=== PATIENT | female | born 1950 | race Caucasian/White ===

== ENCOUNTER → 2017-10-16 09:40 | Outpatient (CLI) | payer MEDICARE, SELFPAY ==
--- NOTE | 2017-10-16 09:42 | ECHOD_ITS ---
Reason For Study: hypoxemia, SOB Procedure This was a 2D Doppler, Color Flow transthoracic echocardiogram. The study was technically difficult. Due to body habitus. Contrast injection was performed. Exam performed in department. Left Ventricle Normal size and thickness. The estimated ejection fraction is 75 %. Stage 1 diastolic dysfunction. No regional wall motion abnormalities noted. Right Ventricle Normal size and thickness. Normal systolic function. Atria The left atrium is moderately enlarged. Normal right atrium. Normal atrial septum. Mitral Valve The mitral valve is structurally normal. No prolapse or stenosis seen. Tricuspid Valve Normal tricuspid valve. Mild (1+) tricuspid valve insufficiency. Right ventricular systolic pressure estimated to be 43 mmHg. Mild pulmonary hypertension. Aortic Valve Trisinus/trileaflet aortic valve. Normal aortic valve. Pulmonic Valve Normal pulmonic valve. Great Vessels Normal aortic root. Mild atherosclerosis of the aortic arch. Normal inferior vena cava. Inferior vena cava collapse with sniff. Pericardium/Pleural No pericardial effusion. Medication 22 gauge I.V. with prn adaptor inserted into left arm. Definity0.3ml given slow IV push to enhance endocardial definition. MMode/2D Measurements & Calculations LVIDd: 4.7 cm IVSd: 0.83 cm LVOT diam: 2.0 cm LVIDs: 2.6 cm LVPWd: 0.88 cm LVOT area: 3.3 cm2 FS: 44.3 % Ao root diam: 2.5 cm LAV(MOD-bp): 84.7 ml LA A4 area: 25.1 cm2 LA dimension: 4.1 cm LAV(MOD-bp) Indexed: 40.7 ml/m2 LAV(MOD-sp2): 92.5 ml LAV(MOD-sp4): 78.4 ml RA A4 area: 18.2 cm2 Time Measurements MV dec time: 0.24 sec Doppler Measurements & Calculations MV E max paul: 149.5 cm/sec Lat Peak E' Paul: 7.7 cm/sec Med Peak E' Paul: 5.8 cm/sec MV A max paul: 165.8 cm/sec E/E' lat: 19.3 E/E' med: 25.7 MV E/A: 0.90 Ao V2 max: 213.0 cm/sec LV V1 max: 146.6 cm/sec SV(LVOT): 96.7 ml Ao max P.2 mmHg LV V1 max P.6 mmHg Ao V2 mean: 143.9 cm/sec LV V1 mean P.4 mmHg Ao mean P.2 mmHg LV V1 mean: 100.2 cm/sec Ao V2 VTI: 44.4 cm LV V1 VTI: 29.3 cm ZEKE(I,D): 2.2 cm2 ZEKE(V,D): 2.3 cm2 PA V2 max: 115.3 cm/sec TR max paul: 307.9 cm/sec TR max P.9 mmHg Interpretation Summary The estimated ejection fraction is 75 %. Stage 1 diastolic dysfunction. The left atrium is moderately enlarged. Mild (1+) tricuspid valve insufficiency. Right ventricular systolic pressure estimated to be 43 mmHg. Mild pulmonary hypertension. The study was technically difficult. Contrast injection was performed. There is no comparison study available. Ordering Physician: Gabriel Gupta Performed By: Consuelo Giang RDCS, RVT
== END | disposition home or self-care (01) ==
PROVIDERS: Family Provider Family Medicine; PCP Family Medicine; Visit Provider Family Medicine
DX: R06.2 Wheezing (principal); R09.02 Hypoxemia
CPT/HCPCS: 93306; Q9957; A4216

== ENCOUNTER 2017-12-17 09:30 | Outpatient (RCR) | payer MEDICARE, SELFPAY ==
--- NOTE | 2017-10-14 12:17 | HP.PTEVAL ---
Patient's Visit Information FANTASMA ALBERTO is a 67 year old F referred to Physical Therapy by Marcelina Beyer DO with a diagnosis of Right Shoulder Scope, Bursectomy, Biceps Tenodesis. Date of Evaluation: 10/14/17 Physical Therapist: Muna Soto - Visit Plan Frequency: 2x /Week Duration: 4 Weeks Plan: Biceps Tenodesis 09/[address] Miller - Subjective Subjective: Patient reports that she was at [employer] [place]- riding around in a golfcart went over a bump and she felt and heard her arm rip. Then she could not lift her arm and was in severe pain in May. Had to leave and came back to [place]. Went to [facility] and they did an x-ray. Was told she had OA. Saw Dr. Gupta who sent her to PT with [facility]- came for 6 weeks of therapy. Did not help. Went and saw Dr. Beyer who sent her for an MRI and told her that she needs surgery. She waited a few weeks and it was hurting so bad that she decided to have surgery. Had surgery Sep 25- the RTC was not torn but the biceps was torn and cleaned out the shoulder. Had a bad reaction to the anesthetic- her vision is still blurred and she feels cloudy. Went home on O2 but has not really used it since. Patient reports that she feels okay now. Sleep: disturbed in the recliner- wearing the sling. Tries to take the sling off periodically and hand down. Pain is located in the deltoid. No pain in the shoulder or neck area. Worst: 5/10 Agg: doing to much. Eases: polar ice machine, Advil Best: 0/10. No N/T, ALEJANDRO, or LOB. Very active with grandchildren and cooking/baking . PMHx/Meds: no change since surgery - Objective Posture: FH, RS, Increased kyphosis. Observation: right arm in sling- incisions healing well. Palpation: tender along bicipital groove and deltoid. ROM: finger dexterity is WNL but slow, Pro/Sup: WNl, Elbow flex/extn (passive): WNL, Shoulder (passive): flexion: 110 degrees with muscular end feel, Abd: 90 degrees, IR: to belly, ER: neutral- pain with all shoulder motions - Goals Goal 1:: Patient will be I with HEP and progression Goal Time Frame: 4-6 Weeks Goal 2:: Patient will demo full AROM of the right shoulder Goal Time Frame: 4-6 Weeks Goal 3:: Patient will demo 4+/5 strength in UE where deficit to ease ADL's. Goal Time Frame: 4-6 Weeks Goal 4:: Patient will maintain proper posture t/o tx session to demo increased scap s/s. Goal Time Frame: 4-6 Weeks - Rehabilitation Potential Physical Therapy Diagnosis: Patient presents with hypomobility- she has decreased ROM, strength and muscular endurance leading to poor posture and decreased ability to perform ADL's. Rehabilitation Potential: Good - Anticipated Interventions Patient/Client Instruction: Educate patient on: Benefits of Fitness Program For the Purpose of:: To increase tolerance to activity/condition/position Therapeutic Exercise to Include: Strength training, Endurance training, Agility training, Body mechanics, Postural training, Passive ROM, Active ROM, Scapular Strength/Stabilization For the Purpose of:: To improve muscle performance and motor function TENS: Yes Cryotherapy (ice pack, ice massage): Yes Thermo therapy (hot pack): Yes Ultrasound (thermal/non thermal): No For the Purpose of:: To decrease pain Thank you for the opportunity to evaluate your patient. For Medicare and Medicare HMO plans, please review the plan of care and approve it. It will need to be FAXED BACK to us at [phone] for Medicare purposes. Please let me know if there are questions or concerns regarding this plan of care. Physician Signature: Date:
--- NOTE | 2017-11-12 09:59 | HP.PTREVAL_ITS ---
Marcelina Beyer, DO, It has been my pleasure to treat FANTASMA ALBERTO over the last 9 visits for Right Shoulder Scope, Bursectomy, Biceps Tenodesis. Please see the progress note below for an update on the physical therapy plan of care! Subjective: Patient reports that she saw MD who was happy with progress and told her she can drive again. She is getting better and getting back to more normal activities. Struggling with laundry basket and getting pill tops off. Is not doing her hair. Sleep: still in the recliner- gets up once or twice to go to the bathroom. Objective/Function: Posture: FH, RS, Increased kyphosis. Palpation: tender along bicipital groove. AROM: flexion: 125 degrees, abd: 90 degrees, IR: pocket , ER: 20 degrees. Strength: Isometric: 4/5 Plan Plan: Cont with POC 2x a week for 3 weeks. Goals Goal 1:: Patient will be I with HEP and progression Goal Time Frame: 4-6 Weeks Goal Progress: Progressing Goal 2:: Patient will demo full AROM of the right shoulder Goal Time Frame: 4-6 Weeks Goal Progress: Progressing Goal 3:: Patient will demo 4+/5 strength in UE where deficit to ease ADL's. Goal Time Frame: 4-6 Weeks Goal Progress: Progressing Goal 4:: Patient will maintain proper posture t/o tx session to demo increased scap s/s. Goal Time Frame: 4-6 Weeks Goal Progress: Progressing Anticipated Interventions Patient/Client Instruction: Educate patient on: Benefits of Fitness Program For the Purpose of:: To increase tolerance to activity/condition/position Therapeutic Exercise to Include: Strength training, Endurance training, Agility training, Body mechanics, Postural training, Passive ROM, Active ROM, Scapular Strength/Stabilization For the Purpose of:: To improve muscle performance and motor function TENS: Yes Cryotherapy (ice pack, ice massage): Yes Thermo therapy (hot pack): Yes Ultrasound (thermal/non thermal): No For the Purpose of:: To decrease pain Please do not hesitate to contact me at [phone] by phone or Fax: if you have questions or concerns regarding this new plan of care! Sincerely, Muna Soto
--- NOTE | 2017-12-17 09:58 | HP.PTREVAL_ITS ---
Marcelina Beyer, DO, It has been my pleasure to treat FANTASMA ALBERTO over the last 14 visits for Right Shoulder Scope, Bursectomy, Biceps Tenodesis. Please see the progress note below for an update on the physical therapy plan of care! Subjective: Patient reports that last night was the first time she slept in a bed due to being sick. Her shoulder is stiff sometimes. Goes tomorrow for her 3rd pulmonary test and possible another sleep apnea test. Has had the flu and respiratory issues for the last month. She has been doing her exercises at home - Objective/Function: Posture: FH, RS. Palpation: not tender. ROM: Flexion: 170 degrees, Abd: 150 degrees. Strength: Isometric: 4+/5 in neutral Plan Plan: Hold- will follow up when she is feeling better Goals Goal 1:: Patient will be I with HEP and progression Goal Time Frame: 4-6 Weeks Goal Progress: Progressing Goal 2:: Patient will demo full AROM of the right shoulder Goal Time Frame: 4-6 Weeks Goal Progress: Progressing Goal 3:: Patient will demo 4+/5 strength in UE where deficit to ease ADL's. Goal Time Frame: 4-6 Weeks Goal Progress: Progressing Goal 4:: Patient will maintain proper posture t/o tx session to demo increased scap s/s. Goal Time Frame: 4-6 Weeks Goal Progress: Progressing Anticipated Interventions Patient/Client Instruction: Educate patient on: Benefits of Fitness Program For the Purpose of:: To increase tolerance to activity/condition/position Therapeutic Exercise to Include: Strength training, Endurance training, Agility training, Body mechanics, Postural training, Passive ROM, Active ROM, Scapular Strength/Stabilization For the Purpose of:: To improve muscle performance and motor function TENS: Yes Cryotherapy (ice pack, ice massage): Yes Thermo therapy (hot pack): Yes Ultrasound (thermal/non thermal): No For the Purpose of:: To decrease pain Please do not hesitate to contact me at [phone] by phone or Fax: if you have questions or concerns regarding this new plan of care! Sincerely, Muna Soto
--- NOTE | 2018-03-10 14:46 | HP.PTDCNRP_ITS ---
HP - Discharge Summary (1) - Patient Information FANTASMA ALBERTO was seen in my office for initial evaluation on 10/14/17. The following Plan of Care was established for this patient: Initial Frequency: 2x /Week Initial Duration: 4 Weeks - Anticipated Interventions Patient/Client Instruction: Educate patient on: Benefits of Fitness Program For the Purpose of:: To increase tolerance to activity/condition/position Therapeutic Exercise to Include: Strength training, Endurance training, Agility training, Body mechanics, Postural training, Passive ROM, Active ROM, Scapular Strength/Stabilization For the Purpose of:: To improve muscle performance and motor function TENS: Yes Cryotherapy (ice pack, ice massage): Yes Thermo therapy (hot pack): Yes Ultrasound (thermal/non thermal): No For the Purpose of:: To decrease pain This patient was last seen in our office . Pertinent comments regarding their Physical therapy will appear below: Patient has not attended physical therapy in over 4 weeks- appropriate to be d/ c at this time. At this point I will be discontinuing this patient from physical therapy. I would be happy to see this patient again in the future if found appropriate by the physician. Thank you! Muna Soto
== END 2017-12-17 19:00 | disposition home or self-care (01) ==
LOC: PT 09:30
PROVIDERS: Family Provider Family Medicine; PCP Family Medicine; Visit Provider Orthopaedic Surgery
DX: Z98.890 Other specified postprocedural states (principal)
CPT/HCPCS: 97110; 97140; 97161; 97530; G8978; G8979

== ENCOUNTER → 2018-02-12 13:09 | Outpatient (CLI) | payer MEDICARE, SELFPAY ==
--- NOTE | 2018-02-12 13:11 | CT_ITS ---
STUDY: CT CHEST WITHOUT CONTRAST REASON FOR EXAM: Female, 68 years old. Interstitial lung disease. Pulmonary hypertension and hypoxia. RADIATION DOSAGE (If Supplied By Facility): CTDIvol = ( 23.13 ) mGy, DLP = ( 677.94 ) mGycm TECHNIQUE: Transaxial imaging was performed without the administration of intravenous contrast material. Multiplanar coronal and sagittal images were reformatted. Individualized dose optimization techniques were used for this CT. COMPARISON: Chest, December 09, 2017. CT of the chest, December 06, 2011. FINDINGS: The lungs are normal. There is minimal atelectatic changes at the left lung base due to the elevated hemidiaphragm and hiatal hernia. There is no demonstrated pleural abnormality. Normal heart and pericardium. There are calcifications of the coronary arteries. There are fatty centered subcentimeter mediastinal lymph nodes. Normal hilar regions. Normal unenhanced pulmonary arteries. There is atherosclerotic calcification of the aortic arch with tortuosity and elongation of the aortic arch and descending thoracic aorta. There are multi-level degenerative changes of the thoracic spine. There is a large retrocardiac type hiatal hernia with associated elevation left hemidiaphragm. Remainder of the visualized abdomen is grossly unremarkable. CT/Chest without Contrast IMPRESSION: 1. Large retrocardiac hiatal hernia. 2. Atherosclerotic changes of the thoracic aorta and coronary arteries. 3. No evidence of pulmonary disease. Minimal atelectasis is seen at the left lung base. 4. No major change from the prior study Electronically Signed: Wallace Ramos DO at 12:59 EDT Tel [phone], Service support ,
== END ==
PROVIDERS: Family Provider Family Medicine; PCP Family Medicine; Visit Provider Internal Medicine Pulmonary Disease
DX: J84.9 Interstitial pulmonary disease, unspecified (principal); I27.20 Pulmonary hypertension, unspecified; R09.02 Hypoxemia
CPT/HCPCS: 71250

== ENCOUNTER 2018-03-18 09:00 | Outpatient (RCR) | payer MEDICARE, SELFPAY ==
--- NOTE | 2018-03-05 10:25 | HP.PTEVAL_ITS ---
Patient's Visit Information FANTASMA ALBERTO is a 68 year old F referred to Physical Therapy by DO AMALIA Hamilton with a diagnosis of R shoulder pain. Date of Evaluation: 03/05/18 Physical Therapist: Michael Eller PT, - Visit Plan Frequency: 1x/Week Duration: 2 Weeks Plan: EDU and issue HEP for R shoulder rot cuff and scap stab ex's - Subjective Subjective: Pt goes by Ivania. Pt reports She had surgery for a torn bicep approximately 6 mos ago. Pt reports she has had multiple health issues since. Pt reports she did have PT for her shoulder after the surgery, but notes she couldnt afford to continue after that so she has put it off until today. Pt reports her pain is severe in the morning, and gets better as she uses it more. Pt reports she did very little strengthening with her rehab prior to stopping Rx. Pt is R hand dominant. Occasional numbness in R hand. Sleep diff secondary to pain. Pt reports most of her pain is on the posterior aspect of R shoulder. Pt reports she is still very limited with lifting a gallon of milk, or trying to poor laundry detergent into her washer. - Pain R shoulder Pain Intensity (Out of 10): 6 Pain Intensity Range: 9 - Objective Neuro: B UE sensation is WNL to light touch. B bicepital reflex= 1/3. Palpation : Pt is very sore throughout the distribution of her supraspinatus muscle, as well as the LHB tendon. No obvious deformity. ROM: L shoulder flex= 155, abd= 145, ER= 35, IR WNL; R shoulder flex= 95, abd= 85, ER= 35, IR moderately limited. MMT: L shoulder 5/5 throughout. R shoulder. special testing: pos empty can sign - Goals Goal 1:: I with HEP Goal Time Frame: 2 Weeks - Rehabilitation Potential Physical Therapy Diagnosis: R shoulder pain, weakness, and limited ROM secondary to R shoulder rot cuff syndrome Rehabilitation Potential: Good - Anticipated Interventions Patient/Client Instruction: Educate patient on: Condition, Plan of Care For the Purpose of:: To improve self management Therapeutic Exercise to Include: Strength training, Endurance training, Postural training, Passive ROM, Active ROM, Scapular Strength/Stabilization For the Purpose of:: To decrease pain, To increase ROM, To improve muscle performance and motor function Thank you for the opportunity to evaluate your patient. For Medicare and Medicare HMO plans, please review the plan of care and approve it. It will need to be FAXED BACK to us at [phone] for Medicare purposes. Please let me know if there are questions or concerns regarding this plan of care. Physician Signature: Date:
--- NOTE | 2018-04-23 09:10 | HP.PT.NRP ---
HP - Discharge Summary (1) - Patient Information FANTASMA ALBERTO was seen in my office for initial evaluation on 03/05/18. The following Plan of Care was established for this patient: Initial Frequency: 1x/Week Initial Duration: 2 Weeks - Anticipated Interventions Patient/Client Instruction: Educate patient on: Condition, Plan of Care For the Purpose of:: To improve self management Therapeutic Exercise to Include: Strength training, Endurance training, Postural training, Passive ROM, Active ROM, Scapular Strength/Stabilization For the Purpose of:: To decrease pain, To increase ROM, To improve muscle performance and motor function This patient was last seen in our office . Pertinent comments regarding their Physical therapy will appear below: Pt was last treated on 03/18/18 for her shoulder pain. Pt was instructed on a HEP which she proved to be I with. Pt has not returned through todays date, and is therefore discontinued at this time. At this point I will be discontinuing this patient from physical therapy. I would be happy to see this patient again in the future if found appropriate by the physician. Thank you! Michael Eller, PT,
== END 2018-03-18 19:00 | disposition home or self-care (01) ==
LOC: PT 09:00
PROVIDERS: Family Provider Family Medicine; PCP Family Medicine; Visit Provider Orthopaedic Surgery
DX: M25.511 Pain in right shoulder (principal)
CPT/HCPCS: 97161; 97530

== ENCOUNTER 2018-08-18 09:00 | Outpatient (RCR) | payer MEDICARE, SELFPAY ==
--- NOTE | 2018-07-17 15:10 | HP.OTEVAL_ITS ---
Patient's Visit Information FANTASMA ALBERTO is a 68 year old F, referred to Occupational Therapy by Gabriel Gupta, with a diagnosis of BLE lymphedema. Date of Evaluation: 07/17/18 Occupational Therapist: Yue Barreto, TOÑAR/Smiley, CHT - Subjective Subjective: Pt states she has not worn her compression hose all summer, and has noticed her legs are swelling more. Pt states her leg swelling does go down when she is sleeping. Pt states her legs swell within two hours of getting up and around. Pt states she has pain from her waist down and can not sleep at night. Pt states she will be seening Physical therapy 07/18/2018 to address her leg and back pain. Pt states she does have a newer pair of compression socks she can wear but does not want to wear them during the summer. pt states she is having difficulty with standing and walking due to her knee and back pain. - Pain BLE 8 - Lymphedema (Circumferential Measure) Mid-foot: right 22cm left 22cm Ankle: right 28cm left 27cm Lower calf: right 28cm left 28cm Largest calf: right 39cm left 37.5cm Below knee: right 34cm left 345cm - Lower Limb Functional Index Lower Extremity Functional Score: 13 - Goals Demonstrate adequate knowledge skin care/prec by 2nd week: Yes Demonstrate adequate knowledge therapeutic exercises by d/c: Yes Select approp compression garment w/donning/care/wear by d/c: Yes Voice need to replace compression garment every 4-6mo by dc: Yes Goal:: pt demo understanding of the need of compression garments for LE to mtg her LE swelling. - Rehabilitation General Assessment: This pt has been seen in the past at this clinic for LE lymphedema. Pt was re-ed. on lymphedema, treatments and home mtg. Pt was ed on need to use compression socks or alternatives. Pt states she is not going to wear compression socks during the summer. Advised pt this would be the best treatment option for her to start wearing her compression socks. pt adamently stated she was not going to wear them becase they are too hot. Pt advised to lay down 2-3 x a day and elevate her legs if she is refusing to wear compression socks at this time. Pt given options of velcro closer compression alternatives but did not like that they are going to be thick and hot too. Ed. pt on compression pump pt did seem open to this if her insurance would pay for it. Rehabilitation Potential: Questionable - Anticipated Interventions Anticipated Interventions: Education re Diagnosis, Education re Life-long lymphedema Management, Education re Skin Care and Precautions, Education re Correct Donning Tech,Care&Wearing Sched Comp Garments, Home Program - Visit Plan TEXT: Thank you for the opportunity to evaluate your patient. For Medicare and Medicare HMO plans, please review the plan of care and approve it. It will need to be FAXED BACK to us at [phone] for Medicare purposes. Please let me know if there are questions or concerns regarding this plan of care. Physician Signature: Date:
--- NOTE | 2018-07-18 12:57 | HP.PTEVAL ---
Patient's Visit Information FANTASMA ALBERTO is a 68 year old F referred to Physical Therapy by Gabriel Gupta with a diagnosis of Medial Knee Pain. Date of Evaluation: 07/18/18 Physical Therapist: Muna Soto - Visit Plan Frequency: 2x /Week Duration: 4 Weeks Plan: Focus on LE and core s/s- functional mobility - Subjective Subjective: Patient reports that she has so many issues with her shoulder, back and legs. Last Sep she had biceps surgery- its worse than before. Has dealing her back and legs since her 30's. She has tried 18-19 meds for pain and inflammation and creams- nothing is working. Last summer they bought a scooter and has been using that and she also uses the scooter in [employer] Lives with and son who can help as needed. Does have lyphedema and is seeing OT. Retired. Dr. Gupta sent her to PT/OT. Is unable to perform ADL's and recreational activities and has to do a little at a time and then has to stop. Went to Dr. Noel had injections and nothing helps. In the past she has tried the therapy pool but it doesn't carry over or last. Pain is located across the low back and radaites to the ankle. She reports its impossible to get comfortable. Describes it as running pains up/down the legs. Has had EMG- which are negative. She has been told she has Fibro- went to specialist who had her go for a lot of tests and told her she just needs to walk/move more. Worst: 8/10 Agg: standing Eases: sitting or laying down Best: 5/10. Sleep: disturbed- she feels like she needs to move a lot. hurts to have her legs straight out. No loss or change in bowel or bladder. Occasionally has NT in both LE but the left is worse than the right- to the knee. Has a lot of stress and she feels like that might be contributing. PMHx: fibro, DM, sleep apnea, biceps repair on the right, HTN, pedimal, lymphedema. Meds: humalog, depacote, metaprolol, verosibide, zetia, some other that she can't remember. - Objective Posture: Fh, RS, increased kyphosis- very rigid in standing and sitting- can not correct with verbal cues or tactile cues. Gait: moderate deviations- bilateral toes turned out with very short chantel and step length- wide MAYITO. SLS: WS but unable to SLS. HR/TR: able with UE A. Observation: wound on the anterior alcaraz on the right LE. Stairs: non recip with 2 HR and significant reliance on UE. Strength: Core: poor, Hip: 3+/5, Knee: 4/5, Ankle: 4/5. ROM: Lumber: extn: decreased by 50%, flexion: decreased t 75%, SB: decerased by 50% Rot: decerased by 50%, Hip: WFL, Knee: WFL, Ankle: WFL. Dural Signs: negative,. Sensation: intact to gross touch. Flex: HS: severe, Gastroc:severe - Goals Goal 1:: Patient will be I with HEP and progression Goal Time Frame: 4-6 Weeks Goal 2:: Patient will asc/desc 8 stairs recip with 2 HR safely Goal Time Frame: 4-6 Weeks Goal 3:: Patinet will ambulate >300 feet wtih a normalized gait pattern Goal Time Frame: 4-6 Weeks Goal 4:: Patient will demo 4+/5 strength in LE Goal Time Frame: 4-6 Weeks - Rehabilitation Potential Physical Therapy Diagnosis: Patient presents with hypomobility- she has decreased ROM, strength and muscular endurance leading to poor posture, balance and functional mobility. Rehabilitation Potential: Fair - Anticipated Interventions Patient/Client Instruction: Educate patient on: Benefits of Fitness Program Therapeutic Exercise to Include: Strength training, Endurance training, Balance training, Agility training, Body mechanics, Flexibilty training, Dynamic Lumbar Stabilization TENS: Yes Cryotherapy (ice pack, ice massage): Yes Thermo therapy (hot pack): Yes Ultrasound (thermal/non thermal): Yes Thank you for the opportunity to evaluate your patient. For Medicare and Medicare HMO plans, please review the plan of care and approve it. It will need to be FAXED BACK to us at [phone] for Medicare purposes. Please let me know if there are questions or concerns regarding this plan of care. Physician Signature: Date:
--- NOTE | 2018-08-18 11:23 | HP.PTDCSUM_ITS ---
HP - PT D/C Summary It has been my pleasure to treat FANTASMA ALBERTO under orders from Gabriel Gupta, for the diagnosis of Medial Knee Pain for a total of 9 visit(s). Discharge Date: Please see the following information for a summary of their discharge status. - Subjective Subjective: Patient reports that she does not see any change. After therapy she feels nauseated and has to lay down after therapy for a few hours. Saw Dr. Gupta last week and he was talking to her about going to a [facility]. Has had a lot of tests run and they can't find anything wrong with her. Frustrated with not getting better and not having any answers. - Pain Right knee Pain Intensity (Out of 10): 9 Left knee Pain Intensity (Out of 10): 8 right ankle Pain Intensity (Out of 10): 10 - Overall Improvement % Improvement: 0 - Objective Objective/Function: Gait: decreased chantel and step length, good arm swing on R , no arm swing on L. Stairs: negotiate stairs with 2 HR and step to pattern, decreased speed and SOB noted. Takes each step abruptly, not fluid motion. Palpation: tender to palpate medial knee joint line and border of patella bilat. AROM: decreased hip flex and knee ext. bilat. Toe raise 25%, heel raise 25%, SL balance bilat. 20 seconds with several sways requiring hand contact with table to stable self. Strength: hip flex. R 3+/5 and L 3/5, hip ext. bilat. 4/5, hip abd. 5/5, hip add. 4/5, knee ext. 4/5, knee flex. 5/5, ankle PF/ DF 5/5. - Goals Goal 1:: Patient will be I with HEP and progression Goal Progress: Progressing Goal 2:: Patient will asc/desc 8 stairs recip with 2 HR safely Goal Progress: Not Progressing Goal 3:: Patinet will ambulate >300 feet wtih a normalized gait pattern Goal Progress: Not Progressing Goal 4:: Patient will demo 4+/5 strength in LE Goal Progress: Not Progressing - Plan Plan: D/C patient- encouraged to follow up MD - D/C Information If there are questions or concerns regarding this patient's physical therapy, please feel free to call me at [phone]. Thank you for the referral of this patient. Sincerely, Muna Soto
== END 2018-08-18 12:37 | disposition home or self-care (01) ==
LOC: PT 09:00
PROVIDERS: Family Provider Family Medicine; PCP Family Medicine; Visit Provider Family Medicine
DX: M25.562 Pain in left knee (principal); M25.561 Pain in right knee; M70.51 Other bursitis of knee, right knee; M70.52 Other bursitis of knee, left knee; I89.0 Lymphedema, not elsewhere classified; M79.89 Other specified soft tissue disorders
CPT/HCPCS: 97110; 97162; 97164; 97166

== ENCOUNTER → 2019-04-13 | Outpatient (CLI) | payer MEDICARE, SELFPAY ==
--- NOTE | 2019-04-13 08:20 | BI_ITS ---
MAMMOGRAPHY - BILATERAL SCREENING REASON FOR EXAM: Female, 69 years old. Routine annual screening examination. PERTINENT HISTORY: Sister with breast cancer. Aunt with breast cancer. TECHNIQUE: Digital bilateral breast bonita (3D mammographic acquisition) in the CC and MLO projections. 2-D mediolateral oblique (MLO) and craniocaudad (CC) views of both breasts were obtained. CAD: Full Field Digital Mammography with Computer Added Detection was performed. COMPARISON: Comparison is made with prior study dated November 21, 2016 and November 22, 2015. FINDINGS: Breast Composition: The breasts are almost entirely fatty. There are no dominant masses or suspicious calcifications. Stable benign-appearing bilateral axillary lymph nodes. No other significant abnormalities are identified. There has been no significant change since the prior study. BI/SCREENING MAMM (CAD), BILAT IMPRESSION: Stable bilateral screening mammogram. Yearly follow-up mammogram recommended. (A) ASSESSMENT CATEGORY: BIRADS Category 2: Benign. A letter regarding these results will be sent to the patient by the facility within 30 days. Approximately 10% of breast cancers are not detected by mammography. A normal mammogram should not delay biopsy of a clinically suspicious abnormality. [id number] Electronically Signed: Alverto Collier, at 9:23 EDT , Service support ,
== END | disposition home or self-care (01) ==
LOC: OPBI 08:03
PROVIDERS: Family Provider Family Medicine; PCP Family Medicine; Referring Provider Family Medicine; Visit Provider Family Medicine
DX: Z12.31 Encounter for screening mammogram for malignant neoplasm of breast (principal)
CPT/HCPCS: 77063; 77067

== ENCOUNTER → 2019-07-28 | Outpatient (CLI) | payer MEDICARE, SELFPAY ==
--- NOTE | 2019-07-28 12:28 | ECHOCS_ITS ---
Reason For Study: PHTN Procedure This was a 2D Doppler, Color Flow transthoracic echocardiogram. The exam was of poor technical quality due to body habitus.. LM with Dr Aguilar's office regarding pt BP- taken in both arms pre/post test. L= 220/76 Rt= 218/66 after vccc=081/86. The study was technically difficult. Contrast injection was performed. Exam performed in department. Left Ventricle Normal LV size. Left ventricular systolic function is normal. The estimated ejection fraction is 70 %. There is evidence of diastolic dysfunction. No regional wall motion abnormalities noted. Right Ventricle Normal RV size. Normal systolic function. Atria The left atrium is moderately enlarged. Normal right atrium. No doppler evidence for ASD. Mitral Valve There is mild mitral annular calcification. Normal mitral valve. Trivial mitral valve insufficiency. Tricuspid Valve Normal tricuspid valve. Moderate (2+) eccentric tricuspid valve insufficiency. Right ventricular systolic pressure estimated to be 55 mmHg. Aortic Valve The aortic valve is not well visualized. Pulmonic Valve The pulmonic valve is not well visualized. Great Vessels Normal sized aortic root. Pericardium/Pleural No pericardial effusion. Medication 22 gauge I.V. with prn adaptor inserted into right arm. Diluted definity 3ml given slow IV push to enhance endocardial definition. MMode/2D Measurements & Calculations LVIDd: 4.8 cm IVSd: 0.74 cm Ao root diam: 2.7 cm LVIDs: 3.0 cm LVPWd: 0.81 cm RVDd: 3.9 cm FS: 36.4 % LAV(MOD-bp): 73.9 ml LA A4 area: 25.3 cm2 LA dimension(2D): 3.4 cm LAV(MOD-bp) Indexed: 35.3 ml/m2 LAV(MOD-sp2): 66.4 ml LAV(MOD-sp4): 75.3 ml RA A4 area: 16.9 cm2 Time Measurements MV dec time: 0.20 sec Doppler Measurements & Calculations MV E max paul: 162.4 cm/sec Lat Peak E' Paul: 6.1 cm/sec Med Peak E' Paul: 6.3 cm/sec MV A max paul: 130.1 cm/sec E/E' lat: 26.8 E/E' med: 25.9 MV E/A: 1.2 MV V2 max: 177.9 cm/sec Ao V2 max: 226.6 cm/sec LV V1 max: 146.5 cm/sec MV max P.7 mmHg Ao max P.6 mmHg LV V1 max P.6 mmHg MV V2 mean: 87.3 cm/sec Ao V2 mean: 159.5 cm/sec LV V1 mean P.0 mmHg MV mean P.7 mmHg Ao mean P.4 mmHg LV V1 mean: 106.5 cm/sec MV V2 VTI: 52.2 cm Ao V2 VTI: 49.9 cm LV V1 VTI: 34.4 cm PA V2 max: 98.0 cm/sec TR max paul: 360.4 cm/sec MV P1/2t-pr_phl: 96.8 msec TR max P.4 mmHg Interpretation Summary The study was technically difficult. Contrast injection was performed. Left ventricular systolic function is normal. The estimated ejection fraction is 70 %. The left atrium is moderately enlarged. There is mild mitral annular calcification. Trivial mitral valve insufficiency. Moderate (2+) eccentric tricuspid valve insufficiency. Right ventricular systolic pressure estimated to be 55 mmHg. There is evidence of diastolic dysfunction. Ordering Physician: Kendrick Aguilar Referring Physician: ZOFIA VARGAS Performed By: Sisi Flores, RDCS, RVT
== END | disposition home or self-care (01) ==
LOC: CVS 12:25
PROVIDERS: Family Provider Family Medicine; PCP Family Medicine; Referring Provider Internal Medicine Pulmonary Disease; Visit Provider Internal Medicine Pulmonary Disease
DX: I27.20 Pulmonary hypertension, unspecified (principal)
CPT/HCPCS: 93306; Q9957; A4216; C8929

== ENCOUNTER → 2019-08-15 08:35 | Outpatient (CLI) | payer MEDICARE, SELFPAY ==
--- NOTE | 2019-08-15 08:53 | MRI_ITS ---
STUDY: MRI LUMBAR SPINE WITHOUT CONTRAST REASON FOR EXAM: Female, 69 years old. Stenosis. Back pain radiates into bilateral legs. Difficulty walking. TECHNIQUE: Standardized fat and water weighted pulse sequences were obtained in the sagittal and axial planes. COMPARISON: None FINDINGS: T12-L1: Normal endplates. Normal disc height, hydration and morphology. Normal bilateral facet joints. Normal central canal and bilateral lateral recesses. Normal bilateral intervertebral neural foramina. Normal lumbar lordosis. There is no substantial scoliosis. Normal conus medullaris that terminates at the T12-L1 level. L1-2: Normal endplates. Normal disc height, hydration and morphology. Normal bilateral facet joints. Normal central canal and bilateral lateral recesses. Normal bilateral intervertebral neural foramina. L2-3: Normal endplates. Disc dehydration. Normal bilateral facet joints. Normal central canal and bilateral lateral recesses. Normal bilateral intervertebral neural foramina. L3-4: Normal endplates. Disc dehydration and mild disc space narrowing. Normal bilateral facet joints. Normal central canal and bilateral lateral recesses. Mild inferior foraminal encroachment due to spurring. No neural compromise. L4-5: Normal endplates. Marked disc space narrowing. Small central and left paramedian disc protrusion, noncompressive. Mild spondylotic bar extending into the left neural foramen. Mild facet hypertrophy. Normal central canal and bilateral lateral recesses. Mild left foraminal encroachment due to spurring. L5-S1: Normal endplates. Disc dehydration and small central disc protrusion. Mild facet hypertrophy. Normal bilateral facet joints. Normal central canal and bilateral lateral recesses. Normal bilateral intervertebral neural foramina. Normal visualized sacral ala. Normal visualized paraspinous soft tissue structures. MRI/Spine Lumbar (Routine) IMPRESSION: 1. Noncompressive disc protrusions at L4-5 and L5-S1. 2. Mild foraminal encroachment at L3-4 and L4-5. 3. Additional degenerative changes detailed above. Electronically Signed: Leslie Arguello MD at 18:01 EDT Tel , Service support ,
== END ==
PROVIDERS: Family Provider Family Medicine; PCP Family Medicine; Referring Provider Family Medicine; Visit Provider Family Medicine
DX: M48.062 Spinal stenosis, lumbar region with neurogenic claudication (principal)
CPT/HCPCS: 72148

== ENCOUNTER → 2019-08-31 16:56 | Outpatient (CLI) | payer MEDICARE, SELFPAY ==
--- NOTE | 2019-08-31 17:00 | RAD_ITS ---
STUDY: X-RAY - CERVICAL SPINE REASON FOR EXAM: Female, 69 years old. Neck pain TECHNIQUE: 4 view(s) of the cervical spine were obtained. COMPARISON: None FINDINGS: There are degenerative changes of the anterior atlantoaxial articulation. Normal odontoid process. Normal cervical lordosis. There is mild endplate spondylosis. Normal disc space heights. Normal visualized intervertebral neuroforamina. There are atherosclerotic vascular calcifications of the carotid arteries. RAD/Cerv Spine 2 or 3 Views IMPRESSION: Mild degenerative change of the cervical spine. No visualized acute loss of height or alignment. Partially visualized calcification of the left greater than right carotid arteries. Recommend consideration for follow-up carotid ultrasound when appropriate. Electronically Signed: Mariajose Merrill MD at 23:04 EDT Tel , Service support ,
== END ==
PROVIDERS: Family Provider Family Medicine; PCP Family Medicine; Referring Provider Anesthesiology Pain Medicine; Visit Provider Anesthesiology Pain Medicine
DX: M54.2 Cervicalgia (principal)
CPT/HCPCS: 72040

== ENCOUNTER → 2019-09-14 12:17 | Outpatient (CLI) | payer MEDICARE, SELFPAY ==
--- NOTE | 2019-09-14 13:54 | CDU_ITS ---
Reason For Study: Carotid Stenosis Rt. Velocities/BP Lt. Velocities/BP Prox CCA 78.6/9.5 cm/sec. Prox CCA 81.7/12.4 cm/sec. Mid CCA 74.7/9.5 cm/sec. Mid CCA 67.4/10.2 cm/sec. Dist CCA 65.6/10.8 cm/sec. Dist CCA 78.4/10.2 cm/sec. Prox ICA 64.3/10.8 cm/sec. Prox ICA 63/11.3 cm/sec. Mid ICA 61.7/10.8 cm/sec. Mid ICA 74/16.8 cm/sec. Dist ICA 71.4/12 cm/sec. Dist ICA 81.7/12.4 cm/sec. Rt. ICA/CCA = 1.0. Lt. ICA/CCA = 1.0. Prox ECA 113.8/12.1 cm/sec. Prox ECA 111.3/10.2 cm/sec. Rt. Vert. 43/8.1 cm/sec. Lt. Vert. 78.4/11.3 cm/sec. Right Extracranial There is intimal thickening but no significant atherosclerotic plaque noted in the right common carotid artery. There is heterogeneous, irregular atherosclerotic plaque noted in the right internal carotid artery. There is no significant atherosclerotic plaque noted in the right external carotid artery. Antegrade flow is noted in the right vertebral artery. Left Extracranial There is homogeneous, smooth atherosclerotic plaque noted in the left common carotid artery. There is heterogeneous, irregular atherosclerotic plaque noted in the left internal carotid artery. There is no significant atherosclerotic plaque noted in the left external carotid artery. The left external carotid artery is not well visualized. Antegrade flow is noted in the left vertebral artery. Procedure Carotid Duplex 50501. Exam performed in department. Interpretation Summary Mild (<50%) stenosis right extracranial internal carotid. Mild (<50%) stenosis left extracranial internal carotid. Flow within the vertebral arteries is antegrade bilaterally. Ordering Physician: Jaz Thomas Referring Physician: Jaz Thomas Performed By: Kandace Manzano RVT
== END ==
PROVIDERS: Family Provider Family Medicine; PCP Family Medicine; Referring Provider Family Medicine; Visit Provider Family Medicine
DX: I65.23 Occlusion and stenosis of bilateral carotid arteries (principal)
CPT/HCPCS: 93880

== ENCOUNTER 2019-09-16 09:04 | Emergency (ER) | payer MEDICARE, SELFPAY ==
[2019-09-16 09:04] VITALS: BP 166/78; PULSE 71; RESP 18; TEMP 36.6; O2SAT 96; BMI 36.6
--- NOTE | 2019-09-16 09:48 | RAD_ITS ---
STUDY: X-RAY - LEFT KNEE REASON FOR EXAM: Female, 69 years old. Pain following a fall. TECHNIQUE: AP and lateral view(s) of the knee. COMPARISON: None. FINDINGS: Normal visualized distal femur. Normal visualized proximal tibia and fibula. Normal proximal tibiofibular articulation. There is severe degenerative arthrosis of the medial femorotibial compartment with severe joint space narrowing. Normal lateral femorotibial compartment. There is moderate degenerative arthrosis of the patellofemoral articulation. Tiny joint effusion. RAD/Knee 1 or 2 Views IMPRESSION: Degenerative arthrosis. Tiny joint effusion. Electronically Signed: Alverto Collier, at 10:09 EDT , Service support ,
--- NOTE | 2019-09-16 09:50 | ED.RN ---
PATIENT TAKES HALF OF HOME ULTRAM, DR. WALL AWARE.
--- NOTE | 2019-09-16 10:22 | ED.DCSUM_ITS ---
- ER Visit Summary Date of Service: 09/16/19 Chief Complaint: Pain History of Present Illness: The patient is a 69 F with left knee pain. The pain started yesterday evening when she was sitting down on her bed. She felt something move her shift in her knee. She has pain with use and weightbearing. She never had this before. She does have a history of left knee meniscus injury which was treated with an arthroscopy remotely in [facility]. Denies any history of blood clots. Denies any weakness or numbness. Denies any skin changes. Physical Examination: Afebrile and vital signs unremarkable. Knee inspection is normal. She has diffuse tenderness to the left knee. Range of motion is intact. Neurovascular intact distally. No laxities or other abnormal findings. Test Results: X-ray shows degenerative changes and a tiny effusion. Emergency Department Course and Treatment: It sounds like the patient subluxed her knee. She has a history of meniscus injury. She has unremarkable x-rays. We will treat with conservative measures, rest, ice, elevate. She has Ultram at home and declined any further pain medication. She was given a walker and will continue using an Elias wrap. Follow-up with orthopedics. Treatment Plan: As above Disposition: Discharge Impression: 1. Left knee pain This note was generated with [employer] dictation software. It may contain incorrect words, spelling, and punctuation that were not noted in review of the chart prior to signing ED Disposition - Plan for ED Patient: Referrals: Jaz Thomas MD [Primary Care Provider] -
--- NOTE | 2019-09-16 10:24 | ED.DEP ---
ED Disposition - Plan for ED Patient: Instructions: KNEE PAIN, Uncertain Cause Referrals: Marcelina Beyer DO [STAFF PHYSICIAN] -
[2019-09-16 10:25] VITALS: BP 134/78; PULSE 87; RESP 18; O2SAT 99
== END 2019-09-16 10:37 | disposition home or self-care (01) ==
LOC: ED 10:22
PROVIDERS: Emergency Provider Emergency Medicine; Family Provider Family Medicine; PCP Family Medicine
DX: M25.562 Pain in left knee (principal)
CPT/HCPCS: 73560; 99282

== ENCOUNTER → 2020-05-10 11:10 | Outpatient (CLI) | payer MEDICARE, SELFPAY ==
--- NOTE | 2020-05-10 11:11 | BI_ITS ---
MAMMOGRAPHY - BILATERAL SCREENING REASON FOR EXAM: Female, 70 years old. Routine annual screening examination. PERTINENT HISTORY: Sister with breast cancer. Aunt with breast cancer. TECHNIQUE: Digital bilateral breast stephen (3D mammographic acquisition) in the CC and MLO projections. 2-D mediolateral oblique (MLO) and craniocaudad (CC) views of both breasts were obtained. CAD: Full Field Digital Mammography with Computer Added Detection was performed. COMPARISON: Comparison is made with prior study dated April 13, 2019 and November 21, 2016. FINDINGS: Breast Composition: The breasts are almost entirely fatty. There are no dominant masses or suspicious calcifications. Stable benign-appearing bilateral axillary lymph nodes. No other significant abnormalities are identified. There has been no significant change since the prior study. BI/SCREEN MAMM (CAD) W/STEPHEN BILAT IMPRESSION: Stable bilateral screening mammogram. Yearly follow-up mammogram recommended. (A) ASSESSMENT CATEGORY: BIRADS Category 2: Benign. A letter regarding these results will be sent to the patient by the facility within 30 days. Approximately 10% of breast cancers are not detected by mammography. A normal mammogram should not delay biopsy of a clinically suspicious abnormality. [id number] Electronically Signed: Alverto Collier, at 12:17 EDT , Service support ,
== END ==
PROVIDERS: PCP Family Medicine; Referring Provider Family Medicine; Visit Provider Family Medicine
DX: Z12.31 Encounter for screening mammogram for malignant neoplasm of breast (principal)
CPT/HCPCS: 77063; 77067

== ENCOUNTER 2020-11-01 13:00 | Outpatient (RCR) | payer MEDICARE, SELFPAY ==
--- NOTE | 2020-10-11 12:58 | HP.PTEVAL ---
Patient's Visit Information FANTASMA ALBERTO is a 70 year old F referred to Physical Therapy by Dr. Joe Noel MD with a diagnosis of BACK AND LEG PAIN. Date of Evaluation: 10/11/20 Physical Therapist: Peter Norris PT, Cert MDT, OCS - Visit Plan Frequency: 1-2x /Week Duration: 4 Weeks Plan: PT INTERVENTIONS DLS ABD/BACK ,POSTURAL EX'S,LE STRENGTHENING AND MODLTIES NEEDED - Subjective This 70 y/o female presents to physical therapy with lumbar pain with radicular symptoms. Patient has back pain and leg pain for many years. Patient has symmtrical lumbar pain to lateral hips and occasional anterior legs. Patient has seen Dr Rodrigues and has had several epidural injections. Patient has had last injection in [facility]. Patient injections last couple of weeks. Denies parathesia/tingling-.Bowel/bladder -> Coughing/sneezing-. Aggraveting factors standing,walking ,lidting,bending,and extended sitting. Patient has difficulty with steps and putting on shoes. Patient alleviating rest,advil. Patient condtion of back and leg pain affects ADL's and housewotk. Patient back pain affects QOL.Patient has fibromaygia. SOCIAL: . VOCATION: retired - Pain Bilateral Back Pain Intensity (Out of 10): 8 Pain Intensity Range: 10 Bilateral Lower Extremity Pain Intensity (Out of 10): 9 Pain Intensity Range: 10 - Objective POSTURE: mild foward posture. GAIT: reciprocal pattern antalgic gait. NEURO: denies parathesia/tingling ,reflexes L3-4,L4-5,L5-S1 1/3. PALPATION; unremarkable. MMT: quads/hams 4-/5,hip flexion 4-/5,hip abd 3+/5 ,ankle 4/5. LUMBAR ROM: flexion mod loss,extension mod loss,side glides mod loss. FLEXABLITY: hams min tight,piriformis min loss - Special Tests L/S Slump test left side: Negative L/S Slump test right side: Negative L/S Left Straight Leg Raise: Negative L/S Right Straight Leg Raise: Negative Lumbar Standing: Flexion - Mechanical Response: No effect Lumbar Standing: Flexion - Symptoms During Testing: Increases Lumbar Standing: Flexion - Symptoms After Testing: No worse Lumbar Standing: Extension - Mechanical Response: No effect Lumbar Standing: Extension - Symptoms During Testing: Increases Lumbar Standing: Extension - Symptoms After Testing: No worse Lumbar Standing: Right Side Glides - Mechanical Response: No effect Lumbar Standing: Right Side Mcgregor - Symptoms During Testing: No effect Lumbar Standing: Right Side Mcgregor - Symptoms After Testing: No effect Lumbar Standing: Left Side Mcgregor - Mechanical Response: No effect Lumbar Standing: Left Side Mcgregor - Symptoms During Testing: No effect Lumbar Standing: Left Side Mcgregor - Symptoms After Testing: No effect - Goals Goal 1:: I with HEP. Goal Time Frame: 4-6 Weeks Goal 2:: Improve posture for ADL'S Goal Time Frame: 4-6 Weeks Goal 3:: Decrease lumbar and leg pain by 50% o > to improve function and ADL'S Goal Time Frame: 4-6 Weeks Goal 4:: Patient to improve lumbar ROM for function of recovery Goal Time Frame: 4-6 Weeks Goal 5:: Patient increase strength BEL 4/5 to improve gait Goal Time Frame: 4-6 Weeks Goal 6:: Patient to improve back owestry score by 5points or > to improve QOL. Goal Time Frame: 4-6 Weeks - Rehabilitation Potential Physical Therapy Diagnosis: This patient has back and leg pain with possibel stenosis with pain in legs and back along with weakness affects standing,walking impairs ADLS' thus benifit from skilled PT Rehabilitation Potential: Good - Anticipated Interventions Patient/Client Instruction: Educate patient on: Condition, Plan of Care For the Purpose of:: To decrease pain, To increase ROM, To improve muscle performance and motor function, To improve ability to perform ADL's, To increase tolerance to activity/condition/position, To improve performance and independence with ADL's, To improve ability of physical actions for home/community/work/leisure, To improve health of tissue, To decrease soft tissue restriction, To increase flexibility/ROM, To improve safety with gait, To reduce risk of recurrence, To improve ability to perform tasks related to life management Therapeutic Exercise to Include: Strength training, Body mechanics, Postural training, Flexibilty training, Dynamic Lumbar Stabilization Comment: BLE For the Purpose of:: To decrease pain, To increase ROM, To improve muscle performance and motor function, To improve ability to perform ADL's, To increase tolerance to activity/condition/position, To improve ability of physical actions for home/community/work/leisure, To improve health of tissue, To decrease soft tissue restriction, To increase flexibility/ROM, To improve ability to perform tasks related to life management TENS: Yes IF ES: Yes Cryotherapy (ice pack, ice massage): Yes Thermo therapy (hot pack): Yes Ultrasound (thermal/non thermal): Yes For the Purpose of:: To decrease pain, To increase ROM, To improve nutrient delivery to tissue, To increase oxygenation perfusion, To improve health of tissue, To decrease soft tissue restriction Thank you for the opportunity to evaluate your patient. For Medicare and Medicare HMO plans, please review the plan of care and approve it. It will need to be FAXED BACK to us at [phone] for Medicare purposes. For Medicare only, by signing this I certify the plan of care. Please let me know if there are questions or concerns regarding this plan of care. Physician Signature: Date:
--- NOTE | 2020-12-28 09:08 | HP.PT.NRP ---
FANTASMA ALBERTO was seen in my office for initial evaluation on 10/11/20. The following Plan of Care was established for this patient: Initial Frequency: 1-2x /Week Initial Duration: 4 Weeks Patient/Client Instruction: Educate patient on: Condition, Plan of Care For the Purpose of:: To decrease pain, To increase ROM, To improve muscle performance and motor function, To improve ability to perform ADL's, To increase tolerance to activity/condition/position, To improve performance and independence with ADL's, To improve ability of physical actions for home/community/work/leisure, To improve health of tissue, To decrease soft tissue restriction, To increase flexibility/ROM, To improve safety with gait, To reduce risk of recurrence, To improve ability to perform tasks related to life management Therapeutic Exercise to Include: Strength training, Body mechanics, Postural training, Flexibilty training, Dynamic Lumbar Stabilization For the Purpose of:: To decrease pain, To increase ROM, To improve muscle performance and motor function, To improve ability to perform ADL's, To increase tolerance to activity/condition/position, To improve ability of physical actions for home/community/work/leisure, To improve health of tissue, To decrease soft tissue restriction, To increase flexibility/ROM, To improve ability to perform tasks related to life management TENS: Yes IF ES: Yes Cryotherapy (ice pack, ice massage): Yes Thermo therapy (hot pack): Yes Ultrasound (thermal/non thermal): Yes For the Purpose of:: To decrease pain, To increase ROM, To improve nutrient delivery to tissue, To increase oxygenation perfusion, To improve health of tissue, To decrease soft tissue restriction This patient was last seen in our office . Pertinent comments regarding their Physical therapy will appear below: Patient seen for lumbar pain for 4 visits focusing on DLS ,posturale ex's . Doing well thuis is d/c At this point I will be discontinuing this patient from physical therapy. I would be happy to see this patient again in the future if found appropriate by the physician. Thank you! Peter Norris, PT, Cert MDT, OCS
== END 2020-11-01 19:00 | disposition home or self-care (01) ==
LOC: PT 13:00
PROVIDERS: PCP Family Medicine; Visit Provider Anesthesiology Pain Medicine
DX: M54.9 Dorsalgia, unspecified (principal); M79.606 Pain in leg, unspecified
CPT/HCPCS: 97110; 97162

== ENCOUNTER → 2021-04-03 10:56 | Outpatient (CLI) | payer MEDICARE, SELFPAY ==
[2021-03-22 13:12] VITALS: BMI 37.1
--- NOTE | 2021-04-03 10:58 | MRI_ITS ---
STUDY: MRI LUMBAR SPINE WITHOUT CONTRAST REASON FOR EXAM: Female, 71 years old. Severe lower back pain and bilateral hip pain. TECHNIQUE: Standardized fat and water weighted pulse sequences were obtained in the sagittal and axial planes. COMPARISON: MRI lumbar spine without contrast 08/15/2019. FINDINGS: T10-T11: (Sagittal only). Anterior marginal spurs. Mild MODIC type II degenerative vertebral marrow fatty changes underneath the T11 superior endplate. Normal T10 inferior endplate. Minimal disc space height narrowing. No ventral extradural defect. Normal central canal and bilateral intervertebral neural foramina. T11-T12 and T12-L1: (Sagittal only). Normal endplates. Normal disc height, hydration and morphology. No ventral extradural defect. Normal central canal and bilateral intervertebral neural foramina. Mild asymmetric fatty infiltration of the vertebral marrow T11 and T12 vertebral bodies. These levels are unchanged. Normal lumbar lordosis. There is no substantial scoliosis. Normal conus medullaris that terminates at the lower T12 vertebral body level. L1-2: Normal endplates. Normal disc height, hydration and morphology. Normal bilateral facet joints. Normal central canal and bilateral lateral recesses. Normal bilateral intervertebral neural foramina. L2-3: Normal endplates. Normal disc height, hydration and morphology. Normal bilateral facet joints. Normal central canal and bilateral lateral recesses. Normal bilateral intervertebral neural foramina. L3-4: Normal endplates. Mild disc space height narrowing. Normal central canal and bilateral lateral recesses. Normal facet joints. Normal bilateral intervertebral neural foramina. L4-5: Mild increase MODIC type I degenerative vertebral marrow edema underneath the vertebral endplates. Moderately pronounced disc space height narrowing is unchanged. Small left posterior paramedian disc protrusion is unchanged. Mild central canal stenosis with an AP canal diameter 10 mm. Mild left degenerative facet arthropathy. Normal right facet joint. Normal bilateral intervertebral neural foramina. L5-S1: Normal endplates. Normal disc height. Small posterior annular fissure underneath the posterior bulging annulus is unchanged. No ventral extradural defect due to presence of ventral epidural fat. Normal central canal and bilateral lateral recesses. Mild right degenerative facet arthropathy. Normal left facet joint. Normal bilateral intervertebral neural foramina. Normal visualized sacral ala. Normal visualized paraspinous soft tissue structures. MRI/Spine Lumbar (Routine) IMPRESSION: 1. No MRI evidence of lumbar extruded disc fragment or nerve root displacement. 2. Mild increase MODIC type I degenerative vertebral marrow edema underneath the vertebral endplates but the moderately pronounced L4-L5 disc space height narrowing, mild central canal stenosis and a small left posterior paramedian disc protrusion are unchanged. 3. Small L5-S1 posterior annular fissure underneath the posterior bulging annulus has no associated ventral extradural defect due to presence of ventral epidural fat. This level is unchanged. 4. No other additional findings or significant changes when compared to 08/15/2019. Electronically Signed: Claudio Ogden MD at 15:43 EDT , Service support ,
== END ==
PROVIDERS: PCP Family Medicine; Referring Provider Orthopaedic Surgery; Visit Provider Orthopaedic Surgery
DX: M54.16 Radiculopathy, lumbar region (principal)
CPT/HCPCS: 72148

== ENCOUNTER → 2021-05-18 10:16 | Outpatient (CLI) | payer MEDICARE, SELFPAY ==
[2021-04-12 10:18] VITALS: BMI 37.1
--- NOTE | 2021-05-18 10:18 | BI_ITS ---
MAMMOGRAPHY - BILATERAL SCREENING REASON FOR EXAM: Female, 71 years old. Routine annual screening examination. PERTINENT HISTORY: Sister with breast cancer. Aunt with breast cancer. TECHNIQUE: Digital bilateral breast stephen (3D mammographic acquisition) in the CC and MLO projections. 2-D mediolateral oblique (MLO) and craniocaudad (CC) views of both breasts were obtained. CAD: Full Field Digital Mammography with Computer Added Detection was performed. COMPARISON: Comparison is made with prior study dated 05/10/2020 and 04/13/2019. FINDINGS: Breast Composition: The breasts are almost entirely fatty. There are no dominant masses or suspicious calcifications. Stable benign-appearing bilateral axillary lymph nodes. No other significant abnormalities are identified. There has been no significant change since the prior study. BI/SCRN MAMM (CAD)W/STEPHEN BILAT IMPRESSION: Stable bilateral screening mammogram. Yearly follow-up mammogram recommended. (A) ASSESSMENT CATEGORY: BIRADS Category 2: Benign. A letter regarding these results will be sent to the patient by the facility within 30 days. Approximately 10% of breast cancers are not detected by mammography. A normal mammogram should not delay biopsy of a clinically suspicious abnormality. [id number] Electronically Signed: Alverto Collier MD at 11:01 EDT , Service support ,
== END ==
PROVIDERS: PCP Family Medicine; Referring Provider Family Medicine; Visit Provider Family Medicine
DX: Z12.31 Encounter for screening mammogram for malignant neoplasm of breast (principal)
CPT/HCPCS: 77063; 77067

== ENCOUNTER → 2022-05-21 | Outpatient (CLI) | payer MEDICARE, SELFPAY ==
--- NOTE | 2022-05-21 08:22 | BI_ITS ---
MAMMOGRAPHY - BILATERAL SCREENING REASON FOR EXAM: Female, 72 years old. Routine annual screening examination. PERTINENT HISTORY: Sister with breast cancer. Aunt with breast cancer. TECHNIQUE: Digital bilateral breast stephen (3D mammographic acquisition) in the CC and MLO projections. 2-D mediolateral oblique (MLO) and craniocaudad (CC) views of both breasts were obtained. CAD: Full Field Digital Mammography with Computer Added Detection was performed. COMPARISON: Screening mammogram from 05/18/2021, 05/10/2020, 04/13/2019, 11/21/2016. FINDINGS: Breast Composition: The breasts are almost entirely fatty. There are no dominant masses or suspicious calcifications. Stable benign-appearing bilateral axillary lymph nodes. No other significant abnormalities are identified. There has been no significant change since the prior study. BI/SCRN MAMM (CAD)W/STEPHEN BILAT IMPRESSION: Stable bilateral screening mammogram. Yearly follow-up mammogram recommended. (A) ASSESSMENT CATEGORY: BIRADS Category 2: Benign. A letter regarding these results will be sent to the patient by the facility within 30 days. Approximately 10% of breast cancers are not detected by mammography. A normal mammogram should not delay biopsy of a clinically suspicious abnormality. [id number] Electronically Signed: Valdemar Gaytan, at 12:46 EDT ,
== END | disposition home or self-care (01) ==
LOC: OPBI 08:20
PROVIDERS: PCP Family Medicine; Visit Provider Family Medicine
DX: Z12.31 Encounter for screening mammogram for malignant neoplasm of breast (principal); Z80.3 Family history of malignant neoplasm of breast
CPT/HCPCS: 77063; 77067

== ENCOUNTER → 2023-05-23 | Outpatient (CLI) | payer MEDICARE, SELFPAY ==
--- NOTE | 2023-05-23 08:58 | BI_ITS ---
MAMMOGRAPHY - BILATERAL SCREENING REASON FOR EXAM: Female, 73 years old. Routine annual screening examination. PERTINENT HISTORY: Sister with breast cancer. Aunt with breast cancer. TECHNIQUE: Digital bilateral breast stephen (3D mammographic acquisition) in the CC and MLO projections. 2-D mediolateral oblique (MLO) and craniocaudad (CC) views of both breasts were obtained. CAD: Full Field Digital Mammography with Computer Added Detection was performed. COMPARISON: Mammogram from 05/21/2022, 05/18/2021. FINDINGS: Breast Composition: There are scattered areas of fibroglandular density. There are no dominant masses or suspicious calcifications. Stable benign-appearing bilateral axillary lymph nodes. No other significant abnormalities are identified. There has been no significant change since the prior study. BI/SCRN MAMM (CAD)W/STEPHEN BILAT IMPRESSION: Stable bilateral screening mammogram. Yearly follow-up mammogram recommended. (A) ASSESSMENT CATEGORY: BIRADS Category 2: Benign. A letter regarding these results will be sent to the patient by the facility within 30 days. Approximately 10% of breast cancers are not detected by mammography. A normal mammogram should not delay biopsy of a clinically suspicious abnormality. Electronically Signed: Valdemar Gaytan DO at 16:33 EDT ,
== END | disposition home or self-care (01) ==
LOC: OPBI 08:57
PROVIDERS: PCP Family Medicine; Referring Provider Family Medicine; Visit Provider Family Medicine
DX: Z12.31 Encounter for screening mammogram for malignant neoplasm of breast (principal); Z80.3 Family history of malignant neoplasm of breast
CPT/HCPCS: 77063; 77067

== ENCOUNTER → 2024-02-06 | Outpatient (CLI) | payer MEDICARE, SELFPAY ==
--- NOTE | 2024-02-06 14:16 | RAD_ITS ---
INDICATION: LUMBAR STRAIN EXAMINATION/TECHNIQUE: X-RAY - XR Spine Lumbar Min 4 Views COMPARISON: Prior study dated: 03/22/2021 FINDINGS: VERTEBRAE: Preserved vertebral body height. No fracture. No spondylolisthesis. Preservation of the normal lumbar lordosis. No substantial scoliosis. DISCS: Severe disc space narrowing of L4-L5 and to lesser extent L3-L4. Posterior degenerative spurs at the level of L4-L5. Endplate spondylosis. INCLUDED ABDOMEN: Atherosclerotic calcifications of the abdominal aorta. Nonspecific gas pattern. RAD/L/S Spine Min 4 Views IMPRESSION: Degenerative changes of the lumbar spine as described above. Electronically Signed: Alejo Finley MD at 11:04 EST ,
--- OUTSIDE RECORDS SUMMARY | 2024-02-06 19:10 | XMS RPT_ITS | CCD ---
Author Name Unknown Address [address] [place] [address] Organization [facility] Care Team Providers Care Family Sociologist Name Role Phone JAZ THOMAS Primary Care Physician JAZ THOMAS Primary Care Unavailable JAZ THOMAS Consulting Unavailable EL DIANE, DR ADELA Lux Attending Unavailable EL DIANE, DR ADELA Lux Consulting Unavailable JAZ THOMAS Primary Care Physician Adela Swanson MD Primary Care Provider [phone] ADELA SWANSON Primary Care Unavailable ADELA SWANSON Referring Unavailable ADELA SWANSON Primary Care Unavailable ADELA SWANSON Primary Care Unavailable ADELA SWANSON Referring Unavailable ADELA SWANSON Primary Care Unavailable JAZ THOMAS Referring Unavailable ADELA SWANSON Primary Care Unavailable EL, ADELA Lux Primary Care Unavailable ADELA SWANSON Primary Care Unavailable ADELA SWANSON Primary Care Unavailable Allergies Allergy Classification Reported Allergen(s) Allergy Type Date of Onset Reaction(s) Facility (5 sources) celecoxib; Translations: [celecoxib] Drug Allergy 02-05-2011 Swelling (finding), Other: See Comments [facility] Work Phone: Medications Current Medications Medication Drug Class(es) Dates Sig (Normalized) Sig (Original) amLODIPine 5 mg oral tablet (3 sources) Dihydropyridine Calcium Channel Caty Start: 03-22-2023 amLODIPine 5 mg oral tablet Dose : 5 mg = 1 tab(s), Oral, qDay, # 90 tab(s), 3 Refill(s), Pharmacy: [id number], 165, cm, 03/22/23 9:09:00 EDT, Height, kg, 03/22/23 9:09:00 EDT, Dosing Weight Start Date: 03/22/23 Status: Ordered Completed/Discontinued Medications Medication Drug Class(es) Dates Sig (Normalized) Sig (Original) 24 hr dilTIAZem hydrochloride 180 mg extended release oral capsule (1 source) Cal[facility] Channel Caty take 1 capsule by mouth once daily diltiazem CR (TIAZAC) 180 mg ORAL 24 hr capsule Take 180 mg by mouth once daily. 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)] Onset: 08-13-2023 Chronic Congestive heart failure; nonhypertensive (9 sources) Acute on chronic diastolic heart failure; Translations: [Heart failure with normal ejection fraction] Onset: 01-05-2023 12-24-2019 Chronic Results Test Name Value Interpretation Reference Range Facil ity Vital Signs Date Time Vital Sign Value Performing Clinician Faci lity 06-19-2023 11:00-0400 Diastolic Blood Pressure Non-Invasive [address] JEAN CARLOS CARROLL MD [facility] 06-19-2023 11:00-0400 Heart rate 66 /min DR JEAN CARLOS CARROLL MD [facility] 06-19-2023 11:00-0400 Systolic Blood Pressure Non-Invasive [address] JEAN CARLOS CARROLL MD [facility] 06-19-2023 10:11-0400 Respiratory rate 16 /min DR JEAN CARLOS CARROLL MD [facility] 06-19-2023 09:40-0400 Diastolic Blood Pressure Non-Invasive [address] JEAN CARLOS CARROLL MD [facility] 06-19-2023 09:40-0400 Heart rate 67 /min DR JEAN CARLOS CARROLL MD [facility] 06-19-2023 09:40-0400 Respiratory rate 18 /min DR JEAN CARLOS CARROLL MD [address] [place] [address] 06-19-2023 09:40-0400 Systolic Blood Pressure Non-Invasive [address] JEAN CARLOS CARROLL MD [address] [place] [address] 06-19-2023 09:23-0400 Diastolic Blood Pressure Non-Invasive [address] JEAN CARLOS CARROLL MD [address] [place] [address] 06-19-2023 09:23-0400 Heart rate 58 /min DR JEAN CARLOS CARROLL MD [address] [place] [address] 06-19-2023 09:23-0400 Respiratory rate 18 /min DR JEAN CARLOS CARROLL MD [address] [place] [address] 06-19-2023 09:23-0400 Systolic Blood Pressure Non-Invasive [address] JEAN CARLOS CARROLL MD [address] [place] [address] 06-19-2023 05:36-[address] JEAN CARLOS CARROLL MD [address] 06-19-2023 05:36-0400 Body height 165.[address] JEAN CARLOS CARROLL MD [address] 06-19-2023 05:36-0400 Body temperature 97.88 [degF] DR JEAN CARLOS CARROLL MD [address] [place] [address] 06-19-2023 05:36-0400 Body weight [address] JEAN CARLOS CARROLL MD [address] 06-19-2023 05:36-0400 Body weight 165.1 kg/m2 DR JEAN CARLOS CARROLL MD [address] Encounters Encounter Date Encounter Type Care Provider Facility Start: 08-24-2023 End: 08-25-2023 Transcribe Orders Jaz Thomas MD Work Phone: Laboratory Medicine Procedures Date Procedure Procedure Detail Performing Clinician Start: 06-19-[address] ADELA SWANSON MD Plan of Treatment Date Care Activity Detail Author Start: 08-24-2023 End: 10-24-2023 CBC W Auto Differential panel - Blood [facility] Work Phone: Immunizations Immunization Date Immunization Notes Care Provider Bal grubbs 08-31-2022 influenza virus vacc ine, unspecified formulation Jaz Thomas MD Work Phone: [facility] 09-01-2004 pneumococcal polysaccharide vaccine, 23 valent Jaz Thomas MD Work Phone: [facility] Work Phone: Payers Date Payer Category Payer Medicare MMO MEDICARE MMO [employer] HMO [id number] 2021-Present [phone] [address] [place] [address] HMO [id number] 2021 Unknown [id number] 1950 Unknown [id number] Social History Date Type Detail Facility Start: 07-04-2011 End: 01-07-2020 Never smoked tobacco (finding) [facility] Sex Assigned At [facility] Start: 07-04-2011 Tobacco use and exposure Smoke less tobacco non-user [facility] Work Phone: Start: 05-08-2017 Alcohol intake 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 Medical Equipment Procedure Code Equipment Code Equipment Origin al Text Equipment Identifier Dates Start: 07-04-2011 Functional Status Date Assessment Result Facility 06-19-2023 Functional Status Independent [facility] 06-19-2023 Functional Status [facility] 06-19-2023 Functional Status Maintained [facility] Mental Status Date Assessment Result Facility 06-19-2023 Mental Status Orientation Oriented x 4 [facility] 06-19-2023 Mental Status [facility] al Clinical Notes 07-05-2021 to 08-09-2023 Note Date & Type Note Facility [facility] 07-19-2023 Hospital Discharge instructions Patient Education 06/19/2023 11:26:58 3- Heart Cath/PCI groin (09/2018) (CUSTOM) HEART CATHETERIZATION/PCI (groin) Discharge Instructions DIET INSTRUCTIONS Drink plenty of fluids for the next 48 hours to help your kidneys flush the heart cath dye out of your system ACTIVITIES May go up and down stairs CAREFULLY Do not drive car FOR 24 HOURS No heavy lifting GREATER THAN 10 POUNDS or pushing or straining FOR 2 DAYS Someone must stay with you at home after the procedure until the morning. BATHING/SHOWERING May tub bathe in 1 week May shower tomorrow WOUND CARE You will go home with a Bandage over your heart cath site. Keep a Bandage on for the next 24 hours and then leave open to air. Some degree of bruising and tenderness is normal around the heart cath site. It will take a while for any bruising to completely resolve. Keep your site clean and dry. You need to report the following to your gwot ia/ilo intelligence support: Any draining or oozing from the site Any swelling at the site Any increased pain or tenderness at the site Any numbness in your leg where the procedure was done Any signs of infection IMPORTANT! CALL 911 FOR ANY BLEEDING OR SWELLING AT THE PROCEDURE SITE If there is any large amount of bleeding, you or someone else need to apply direct pressure to the site (just like the nurse did in the heart lab after your procedure). It is very important that you hold constant pressure. Do not release the pressure to check if the bleeding has stopped. You then need to be transported to the nearest emergency room. WATCH FOR SIGNS OF INFECTION (Usually appears 36-48 hours after surgery) A temperature above 100.5 Redness or swelling Increased pain Foul odor or drainage If you have any questions, please call your doctor at the number listed on your follow up instructions. Follow all instructions given to you by your physician Document Released: 11/18/2006 Document Revised: 11/04/2013 Document Reviewed: 11/19/2014 ExitCare Patient Information 2015 [employer]. This information is not intended to replace advicegiven to you by your health care provider. Make sure you discuss any questions you have with your health care provider. Follow Up Care 06/07/2023 13:43:36 With:JAZ THOMAS Address: [address] [place] [phone] Business (1) When: Unknown With:ADELA SWANSON MD Address: [address] [place] [address] [address] [place] [address]- When:07/23/2023 13:15:00 [facility] 07-19-2023 Summary of episode note Discharge Instructions Thank you for allowing [facility] to assist you with your healthcare needs. The following is importantdischarge information regarding your hospital visit. Your Care Team JAZ THOMAS What to do next Scheduled Follow-Up Appointments Appointment Type When Where Contact InformationCV OV 07/23/2023 01:15 PM EDT [facility] Follow Up Appointments Follow Up with ADELA SWANSON MD When 07/23/2023 01:15 PM EDT Where: [address] [place] [address] [address] [place] [address]- Follow Up with JAZ THOMAS When In 0 days Where: [address] [place] [phone] Business (1) Allergies celecoxib (Swelling) Medications Please ask your primary doctor or pharmacist before taking any other medication not listed, including over the counter drugs, herbal medications, vitamins and or supplements as they may interact withyour home medications. What How Much When Instructions Last Dose Changed bumetanide (bumetanide 1 mg oral tablet) 1 tab(s) by mouth Every day Pickup at [facility] Unchanged amLODIPine (amLODIPine 5 mg oral tablet) 1 tab(s) by mouth Once a day Unchanged aspirin (aspirin 81 mg oral delayed release tablet) 1 tab(s) by mouth Every day Unchanged cloNIDine (cloNIDine 0.1 mg oral tablet) 1 tab(s) by mouth Daily at bedtime Unchanged empagliflozin (Jardiance 10 mg oral tablet) 1 tab(s) by mouth Once a day (in the morning) Unchanged ezetimibe (Zetia 10 mg oral tablet) 1 tab(s) by mouth Once a day Unchanged insulin glargine (Lantus Solostar Pen 100 units/ mL 3 mL Pen) 40 unit(s) Subcutaneous Two (2) times a day Unchanged insulin lispro (HumaLOG) (HumaLOG 100 units/ mL injectable solution) 30 unit(s) Subcutaneous Three (3) times a day before meals Unchanged losartan (losartan 100 mg oral tablet) 1 tab(s) by mouth Once a day Unchanged metoprolol (metoprolol tartrate 100 mg oral tablet) 1 tab(s) by mouth Two (2) times a day Unchanged simvastatin (simvastatin 20 mg oral tablet) 1 tab(s) by mouth Daily at bedtime Unchanged spironolactone (spironolactone 25 mg oral tablet) 1 tab(s) by mouth Every other day Unchanged valproic acid (valproic acid 250 mg/ 5 mL oraL syrup) 5 Milliliter by mouth Two (2) times a day Pharmacy Information [facility]: [address] [place], [place] [id number] [phone] Please take this list to your next doctor s visit. Bring all medications you take, including over the counter medications, herbals and other supplements with you to your doctor s visit. Patients and families are reminded to discard old lists and to update any records with all medication providers or retail pharmacies. Education Materials HEART CATHETERIZATION/PCI (groin) Discharge Instructions DIET INSTRUCTIONS Drink plenty of fluids for the next 48 hours to help your kidneys flush the heart cath dye out of your system ACTIVITIES May go up and down stairs CAREFULLY Do not drive car FOR 24 HOURS No heavy lifting GREATER THAN 10 POUNDS or pushing or straining FOR 2 DAYS Someone must stay with you at home after the procedure until the morning. BATHING/SHOWERING May tub bathe in 1 week May shower tomorrow WOUND CARE You will go home with a Bandage over your heart cath site. Keep a Bandage on for the next 24 hours and then leave open to air. Some degree of bruising and tenderness is normal around the heart cath site. It will take a while for any bruising to completely resolve. Keep your site clean and dry. You need to report the following to your gwot ia/ilo intelligence support: Any draining or oozing from the site Any swelling at the site Any increased pain or tenderness at the site Any numbness in your leg where the procedure was done Any signs of infection IMPORTANT! CALL 911 FOR ANY BLEEDING OR SWELLING AT THE PROCEDURE SITE If there is any large amount of bleeding, you or someone else need to apply direct pressure to the site (just like the nurse did in the heart lab after your procedure). It is very important that you hold constant pressure. Do not release the pressure to check if the bleeding has stopped. You then need to be transported to the nearest emergency room. WATCH FOR SIGNS OF INFECTION (Usually appears 36-48 hours after surgery) A temperature above 100.5 Redness or swelling Increased pain Foul odor or drainage If you have any questions, please call your doctor at the number listed on your follow up instructions. Follow all instructions given to you by your physician Document Released: 11/18/2006 Document Revised: 11/04/2013 Document Reviewed: 11/19/2014 ExitCare Patient Information 2015 [employer]. This information is not intended to replace advicegiven to you by your health care provider. Make sure you discuss any questions you have with your health care provider. Additional Information VACCINATE! IT SAVES LIVES! Members of the community who have not yet received the COVID-19 vaccine and would like to receive it can visit one of [facility] vaccine clinics. There are many vaccine clinic locations within the [facility]. For locations and available times, please visit [email or web address].[place].gov/. It is important to note that some COVID mobile vaccine clinics are held outdoors and may be canceled in rainy or stormy conditions. To learn more about pediatric vaccinations (ages 5-11), we invite you to visit the [facility] webpage. [email or web address].[email or web address]/pages/[email or web address]-Ijwsg-[email or web address]-Xrgvslxjas-[email or web address]-Vnf stions.htmlTo learn more about the COVID-19 vaccine, we invite you to visit the CDC website for a list of frequently asked questions.https://www.cdc.gov/coronavirus/2019-ncov/vaccines/faq.html [facility] Patient Portal Access Instructions: Stay connected with your healthcare team and access your personal medical information anytime with the [email or web address] Patient Portal. Please follow the directions below to create your [email or web address] account: 1.Access the email account you provided upon registration to the hospital/physician office.2.Look for an invitation email from [facility].3.Open the email and access the invitation link: AcceptInvitation to [facility].4.Fill in the required garcia to create your account. To access your account, visit [email or web address]. Click the blue button labeled Access Patient Portal and then log in with the username and password that you created in the steps above. You will be able to view your test results, lab results, a summary of your visits, upcoming appointments and more. There is also a convenient messaging option where you can send secure messages to your p Se[employer]orn Networksvider. In addition, you will have the ability to download any documents or summaries to your computer and/or send the information securely to a physician. Remember that your healthcare information is confidential, so carefully consider who you will allowto register on the [facility] Patient Portal for access to your information. You can also access the [facility] Patient Portal on the [employer] rigo. Simply click on Patient Portal and then log into your account. If you would like to receive a full copy of your medical records, please contact the [facility] Medical Records Department by calling [phone], Saturday through Saturday between 8 a.m. and 4:30 p.m. HOW TO SAFELY DISPOSE OF PRESCRIPTION MEDICATIONS Please use one of the following methods to safely dispose of your unused medications. 1.Use a drug disposal kit: the drug disposal pouch allows you to safely discard your old and unuseddrugs. Ask your nurse to give you one when you are discharged.2.Visit a local take-back location: Many local pharmacies and police departments have programs that collect old and unwanted prescriptiondrugs. Call your local pharmacy or go to http://bit.Traka/0T8Nw6y to find one close to you.3.Make use of household items: Use cat litter or old coffee grounds to dispose medications if other options arenot available. Mix your drugs with these household products, seal them in an airtight container andthrow it into the garbage. Call [facility]: [phone] to be sure your drugs can be disposed of in this way. Some medicines may require a different approach.4.Never flush your medications down the toilet. IF YOU HAVE BEEN PRESCRIBED AN OPIOID FOR PAIN If you have been prescribed an opioid (such as hydrocodone, oxycodone or morphine), it is critical to understand the possible side effects and risks of opioid pain medications. Even when taken as directed, opioids can have several side effects including: Tolerance, meaning you might need to take more of a medication for the same pain relief. Nausea, vomiting and/or constipation. Sleepiness, dizziness, dry mouth, confusion, depression or itching. Physical dependence, meaning you have withdrawal symptoms when a medication is stopped, can develop within a few days. KNOW YOUR RESPONSIBILITIES It is important to know exactly how much and how often to take the opioid pain medications you are prescribed. Never take opioids in higher amounts or more often than prescribed. Do not combine opioids with alcohol or other drugs that cause drowsiness, such as benzodiazepines, also known as benzos, including diazepam and alprazolam, muscle relaxants or sleep aids. Never sell or share prescription opioids. This is illegal. Store opioids in a secure place and out of reach of others (including children, family, friends and visitors). The last page of this document has been signed and retained as a CHART COPY. Signatures Patient Education Materials 3- Heart Cath/PCI groin (09/2018) (CUSTOM) Medication Leaflets My discharge plan and instructions have been reviewed and explained to me and I,REMY, FANTASMA Pato understand my current condition and have read and understand these discharge instructions. I have receiveda written copy of the plan/instructions. If I have questions, I am aware that I should contact my do ctor. Patient/Distribution Center Supervisor Signature: Date/Time: Relationship to Patient: Witness Name/Signature: Date/Time: [id number] Note* Exam Date Time Procedure Performing Provider Status 06/19/23 8:11 AM Cardiac Catheterization -CV Auth (Verified) [facility] 08-04-2021 Evaluation + Plan note Future Scheduled Tests Laboratory* Basic Metabolic Panel 07/05/21 * Basic Metabolic Panel 11/02/21 * Basic Metabolic Panel 02/06/22 * N-Terminal proBNP 11/02/21 * N-Terminal proBNP 02/06/22 * Complete Blood Count 07/05/21 * Complete Blood Count 11/02/21 * Complete Blood Count 02/09/21 * Complete Metabolic Panel 02/09/21 [facility] Evaluation + Plan note Future Appointments Appointment Date:07/23/2023 01:15:00 PM Scheduled Provider: Location:[facility] Appointment Type:CV OV Future Scheduled Tests Laboratory* Basic Metabolic Panel 06/07/23 * Basic Metabolic Panel 10/03/22 * Basic Metabolic Panel 01/03/23 * Basic Metabolic Panel 04/02/23 * Thyroid Stimulating Hormone 09/07/23 * Thyroid Stimulating Hormone 08/19/22 * Complete Blood Count 06/07/23 * Complete Blood Count 09/07/23 * Complete Blood Count 08/19/22 * Lipid Profile 09/07/23 * Lipid Profile 08/19/22 * Complete Metabolic Panel 09/07/23 * Complete Metabolic Panel 08/19/22 * N-Terminal proBNP 06/07/23 * N-Terminal proBNP 10/03/22 * N-Terminal proBNP 01/03/23 * N-Terminal proBNP 04/02/23 * N-Terminal proBNP 09/21/23 * N-Terminal proBNP 08/19/22 [facility] Evaluation + Plan note Future Appointments Appointment Date:10/09/2023 10:30:00 AM Scheduled Provider: Location:[facility] Appointment Type:CV OV Future Scheduled Tests Laboratory* Basic Metabolic Panel 06/07/23 * Basic Metabolic Panel 07/26/23 * Basic Metabolic Panel 10/03/22 * Basic Metabolic Panel 01/03/23 * Basic Metabolic Panel 04/02/23 * Thyroid Stimulating Hormone 09/07/23 * Thyroid Stimulating Hormone 08/19/22 * Complete Blood Count 06/07/23 * Complete Blood Count 09/07/23 * Complete Blood Count 08/19/22 * Lipid Profile 09/07/23 * Lipid Profile 08/19/22 * Complete Metabolic Panel 09/07/23 * Complete Metabolic Panel 08/19/22 * N-Terminal proBNP 06/07/23 * N-Terminal proBNP 07/26/23 * N-Terminal proBNP 10/03/22 * N-Terminal proBNP 01/03/23 * N-Terminal proBNP 04/02/23 * N-Terminal proBNP 09/21/23 * N-Terminal proBNP 08/19/22 [facility] Evaluation note* Diagnosis Type II diabetes mellitus with hyperosmolarity, uncontrolled (HCC)- Primary Type II or unspecified type diabetes mellitus with hyperosmolarity, uncontrolled Essential hypertension, malignant documented in this encounter [facility] course Narrative No data available for this section [facility] Hospital Discharge instructions No data available for this section [facility] Progress note No data available for this section [facility] Summary Purpose Family History No Family History Records Found Advance Directives No Advanced Directives Records FoundNo Advanced Directives Records Found Additional Source Comments Patient Care team informatio n (unrecognized section and content) INFORMATION SOURCE (unrecogn ized section and content) DATE CREATED AUTHOR AUTHOR'S ORGANIZ ATION 08/26/2023 [facility] Source Comments (unrecognize d section and content) In the event this informatio n is protected by the Federal Confidentiality of Alcohol and Drug Abuse Patient Records regulations: The Federal rules restrict any use of the information to criminally investigate or prosecute any alcohol or drug abuse patient.[facility] FOR RECORDS PERTAINING TO PATIENTS WHO ARE OR HAVE BEEN ENROLLED IN A CHEMICAL DEPENDENCY/SUBSTANCEABUSE PROGRAM, SOME INFORMATION MAY BE OMITTED. This clinical summary was aggregated from multiple sources. Caution should be exercised in using it in the provision of clinical care. This summary normalizes information from multiple sources, and as a consequence, information in this document may materially change the coding, format and clinical context of patient data. In addition, data may be omitted in some cases. CLINICAL DECISIONS SHOULD BE BASED ON THE PRIMARY CLINICAL RECORDS. [facility]. provides no warranty or guarantee of the accuracy or completeness of information in this document.
== END | disposition home or self-care (01) ==
LOC: MTRAD 14:15
PROVIDERS: PCP Family Medicine; Referring Provider Chiropractor; Visit Provider Chiropractor
DX: S33.5XXA Sprain of ligaments of lumbar spine, initial encounter (principal)
CPT/HCPCS: 72110

== ENCOUNTER → 2024-05-25 | Outpatient (CLI) | payer MEDICARE, SELFPAY ==
--- NOTE | 2024-05-25 10:02 | BI_ITS ---
MAMMOGRAPHY - BILATERAL SCREENING REASON FOR EXAM: Female, 74 years old. Routine annual screening examination. PERTINENT HISTORY: Sister with breast cancer. Aunt with breast cancer. TECHNIQUE: Digital bilateral breast stephen (3D mammographic acquisition) in the CC and MLO projections. 2-D mediolateral oblique (MLO) and craniocaudad (CC) views of both breasts were obtained. CAD: Full Field Digital Mammography with Computer Added Detection was performed. COMPARISON: Comparison is made with prior study dated May 23, 2023 and May 21, 2022. FINDINGS: Breast Composition: The breasts are almost entirely fatty. There are no dominant masses or suspicious calcifications. Stable bilateral fat containing axillary lymph nodes. No other significant abnormalities are identified. There has been no significant change since the prior study. BI/SCRN MAMM (CAD)W/STEPHEN BILAT IMPRESSION: Stable bilateral screening mammogram. Yearly follow-up mammogram recommended. (A) ASSESSMENT CATEGORY: BIRADS Category 2: Benign. A letter regarding these results will be sent to the patient by the facility within 30 days. Approximately 10% of breast cancers are not detected by mammography. A normal mammogram should not delay biopsy of a clinically suspicious abnormality. [id number] Electronically Signed: Alverto Collier MD at 12:43 EDT ,
== END | disposition home or self-care (01) ==
LOC: OPBI 10:01
PROVIDERS: PCP Family Medicine; Referring Provider Family Medicine; Visit Provider Family Medicine
DX: Z12.31 Encounter for screening mammogram for malignant neoplasm of breast (principal)
CPT/HCPCS: 77063; 77067

== ENCOUNTER → 2024-07-10 | Outpatient (CLI) | payer MEDICARE, SELFPAY ==
--- NOTE | 2024-07-10 07:27 | MRI_ITS ---
EXAM: MR LUMBAR SPINE WITHOUT INTRAVENOUS CONTRAST CLINICAL INDICATION: SPINAL STENOSIS, BACK PAIN, PREVIOUS XRAYS TECHNIQUE: Multiplanar and multisequence MR images of the lumbar spine without intravenous contrast. COMPARISON: No relevant prior studies available. FINDINGS: VERTEBRAE: Unremarkable. Vertebral body heights are preserved. Normal vertebral bodies and posterior elements. Normal alignment. No spondylolisthesis. There is preservation of the normal lumbar lordosis. INTERSPACES: Disc desiccation throughout the lumbar spine. SPINAL CORD: Unremarkable. Normal position and signal intensity of the conus medullaris. SOFT TISSUES: Unremarkable. DISCS/SPINAL CANAL/NEURAL FORAMINA: L1-L2: Unremarkable. Normal disc height and morphology. Normal spinal canal and lateral recesses. Normal neuroforamina. L2-L3: Mild broad-based disc bulge and facet joint hypertrophy, no significant central canal or neural foraminal narrowing. L3-L4: Mild broad-based disc bulge and facet joint hypertrophy, no significant central canal or neural foraminal narrowing. L4-L5: Disc height loss, asymmetric left paracentral/neural foraminal and lateral disc bulge and facet hypertrophy. Mild central canal narrowing, mild left neural foraminal stenosis. The disc bulge contacts the traversing left L5 nerve root. L5-S1: Mild broad-based disc bulge and facet hypertrophy. No significant central canal or neural foraminal narrowing. MRI/Spine Lumbar (Routine) IMPRESSION: 1. No acute abnormalities identified involving the lumbar spine. 2. Multilevel degenerative disc disease, but most notable at L4/5, where there is disc height loss, asymmetric left paracentral/neural foraminal and lateral disc bulge and facet hypertrophy. Mild central canal narrowing, mild left neural foraminal stenosis. The disc bulge contacts the traversing left L5 nerve root. This could cause radicular symptoms. Electronically Signed: Michael Perkins MD at 10:59 EDT ,
== END | disposition home or self-care (01) ==
LOC: MRI 07:16
PROVIDERS: PCP Family Medicine; Referring Provider Anesthesiology Pain Medicine; Visit Provider Anesthesiology Pain Medicine
DX: M48.061 Spinal stenosis, lumbar region without neurogenic claudication (principal)
CPT/HCPCS: 72148

== ENCOUNTER → 2024-09-14 | Outpatient (CLI) | payer MEDICARE, SELFPAY ==
--- NOTE | 2024-09-14 11:48 | RAD_ITS ---
HISTORY: RIGHT HIP PAIN. TECHNIQUE: XR Hip Unilateral with Pelvis when performed; 2-3 Views. COMPARISON: 08/28/2007. FINDINGS: OSSEOUS STRUCTURES: No acute displaced fracture identified. Note that overlapping bowel shadows may obscure osseous detail. Mineralization unremarkable. JOINT SPACES: No dislocation. Mild degenerative change. SOFT TISSUES: New calcification in the right pelvis, which may be related to the bladder or uterus. RAD/HIP, UNI W/ Pelvis 2-3 Views IMPRESSION: No acute displaced fracture or dislocation identified. Electronically Signed: Dasha Painter MD at 11:58 EDT ,
== END | disposition home or self-care (01) ==
LOC: RAD 11:47
PROVIDERS: PCP Family Medicine; Referring Provider Anesthesiology Pain Medicine; Visit Provider Anesthesiology Pain Medicine
DX: M25.551 Pain in right hip (principal)
CPT/HCPCS: 73502

== ENCOUNTER → 2025-05-26 | Outpatient (CLI) | payer MEDICARE, SELFPAY ==
--- NOTE | 2025-05-26 11:49 | BI_ITS ---
EXAM: SCRN MAMM (CAD)W/STEPHEN BILAT DATE: 05/26/2025 CLINICAL HISTORY: F, Age 75 y/o , SCREENING Sister with breast cancer. Aunt with breast cancer. TECHNIQUE: SCRN MAMM (CAD)W/STEPHEN BILAT COMPARISON: Prior exam(s) dated May 25, 2024.. FINDINGS: TISSUE DENSITY: The breast tissue is almost entirely fatty. Bilateral Breast Mammographic Findings: No significant masses, calcifications or other abnormalities are identified. No suspicious masses, areas of developing architectural distortion, or suspicious calcifications. There has been no significant interval change. BI/SCRN MAMM (CAD)W/STEPHEN BILAT IMPRESSION: Stable examination. OVERALL FINAL ASSESSMENT BI-RADS 1: NEGATIVE. RECOMMEND ANNUAL MAMMOGRAPHIC SCREENING. RECOMMENDATION: Routine annual follow-up in 1 Year A letter with findings and recommendations will be mailed to the patient. Reading Location: [id number]
== END | disposition home or self-care (01) ==
LOC: OPBI 11:47
PROVIDERS: PCP Family Medicine; Referring Provider Family Medicine; Visit Provider Family Medicine
DX: Z12.31 Encounter for screening mammogram for malignant neoplasm of breast (principal)
CPT/HCPCS: 77063; 77067